=== PATIENT | female | born 2000 | race Caucasian/White ===

== ENCOUNTER 2021-12-06 14:35 | Emergency (ER) | payer SELFPAY ==
[~2021-12-06] VITALS: Ht 175.3 cm; Wt 68.9 kg
[2021-12-06] MEDS ORDERED: IV NORMAL SALINE 1000 ML BAG IV ONE (14:45)
[2021-12-06 15:05] LABS: HEMATOCRIT 33.4 % (31.2-41.9); MEAN CORPUSCULAR VOLUME 90.7 fL (75.5-95.3); PLATELET COUNT (AUTO) 270 K/uL (179-408)
[2021-12-06 15:09] LABS: CARBON DIOXIDE 23 mmol/L (21-32); CHLORIDE 106 mmol/L (98-107); CREATININE 0.8 mg/dL (0.6-1.3); GLUCOSE 116 mg/dL (74-106); POTASSIUM 3.4 mmol/L (3.5-5.1); UREA NITROGEN, BLOOD 10 mg/dL (7-18)
--- NOTE | 2021-12-06 16:19 | NUR ---
Patient discharged to home in stable condition. Written and verbal after care instructions given. Patient verbalizes understanding of instructions. Stressed follow up or return to ER for worsening s/s.
[2021-12-06 16:20] VITALS: BP 109/60
== END 2021-12-06 16:18 | disposition home or self-care (01) ==
LOC: ER 14:35
DX: T67.1XXA Heat syncope, initial encounter (principal); X50.9XXA Other and unspecified overexertion or strenuous movements or postures, initial encounter; Y93.01 Activity, walking, marching and hiking; Y92.89 Other specified places as the place of occurrence of the external cause
CPT/HCPCS: 99284; 96360; 80048; 85025; 84702; 36415; 93005; J7040; A4663